=== PATIENT | female | born 2005 | race Caucasian/White ===

== ENCOUNTER 2023-10-30 22:20 | Emergency (ER) | payer MEDICAID, OTHER ==
--- NOTE | 2023-10-30 22:33 | ED Physician Documentation ---
PD HPI DYSPNEA - Stated complaint Stated Complaint: ASTHMA ATTACK - Chief complaint Chief Complaint: Resp - History obtained from History obtained from: Patient - Additional information Additional information: She has a history of asthma, PTSD and depression as well as remote fentanyl abuse. Did use some cannabis earlier this evening. On a usual day uses her rescue inhaler over only every third day or so. Does not use any maintenance medication. Started having severe shortness of breath and tachypnea over the last couple of hours. PD PAST MEDICAL HISTORY - Past Medical History Respiratory: Asthma - Allergies Allergies/Adverse Reactions: Allergies Allergy/AdvReac Type Severity Reaction Status Date / Time adhesive Allergy Unknown Verified 10/30/23 22:24 bee venom protein (honey bee) Allergy Unknown Verified 10/30/23 22:24 latex Allergy Unknown Verified 10/30/23 22:24 prednisone Allergy Unknown Verified 10/30/23 22:24 anesthesia Allergy Unknown Uncoded 10/30/23 22:24 - Social History Does the pt smoke?: No Smoking Status: Never smoker Substance Use and Type: Marijuana PD ED PE NORMAL - Vitals Vital signs reviewed: Yes - General General: Alert and oriented X 3, Other (She is severely hyperventilating and cannot talk but communicates by texting on her phone.) - Cardiac Cardiac: RRR, No murmur - Respiratory Respiratory: No respiratory distress, Other (Profoundly tachypneic but her lungs are actually very clear.) - Abdomen Abdomen: Non tender - Derm Derm: Normal color, Warm and dry - Extremities Extremities: No edema, No calf tenderness / cord - Neuro Neuro: Alert and oriented X 3 Results - Vitals Vitals: Vital Signs - 24 hr 10/30/23 10/30/23 10/30/23 22:25 22:31 22:35 Temperature 36.1 C L Heart Rate 130 H 111 H 122 H Respiratory 40 H 38 H Rate Blood Pressure 138/108 H O2 Saturation 99 100 Oxygen O2 Source Room air - Labs Labs: Laboratory Tests 10/30/23 22:48 VBG pH 7.542 H VBG pCO2 22.5 L VBG pO2 35.6 VBG HCO3 18.9 L VBG Total CO2 19.6 L VBG O2 Saturation 79.2 VBG Base Excess -1.4 PD Medical Decision Making - ED course ED course: She presents with "asthma exacerbation". That said her lungs are very clear but she is quite tachypneic anxious and has carpopedal spasms. She was administered an albuterol neb and 1 mg of Ativan, on reexamination at 11:05 PM she is still very hyperventilatory. Venous blood gas shows significant respiratory alkalosis. The blood pressure cuff causes Trousseau sign consistent with panic attack. She was administered another dose of Ativan, this time 2 mg that she is not at all sedated. Care to Dr. Burrows at 11 PM shift change pending reevaluation after that. Departure - Departure Clinical Impression: Dyspnea, Panic attack Condition: Stable Record reviewed to determine appropriate education?: Yes Instructions: ED Panic Attack Forms: PCP List
[2023-10-30] MEDS ORDERED: ALBUTEROL NEB 2.5 MG/3 ML INH ONE (22:34)
[2023-10-30] MEDS: ALBUTEROL NEB 2.5 MG/3 ML INH STA (22:35)
[2023-10-30] MEDS: LORazepam 2 MG/ML VIAL IVP STA ×2 (22:37→23:19)
[2023-10-30 22:52] LABS: VBG BASE EXCESS -1.4 mmol/L (-2 - +2); VBG HCO3 18.9 mmol/L (23-28); VBG OXYGEN SATURATION 79.2 % (60-80); VBG PCO2 22.5 mmHg (41-51); VBG PH 7.542 (7.31-7.41); VBG PO2 35.6 mmHg (25-47); VBG TOTAL CO2 19.6 mmol/L (24-29)
[2023-10-30 23:29] VITALS: BP 106/79
[2023-10-31 00:09] VITALS: O2SAT 98
--- NOTE | 2023-10-31 01:57 | ED Physician Documentation ---
ED Addendum - Addendum Addendum: 10/31/23 01:54 I received signout/turnover of care from Dr. Freire on this patient; please see his note for complete H&P. In short, patient presented with a chief complaint of shortness of breath, found to have aspects of H&P suggestive of panic attack/anxiety with hyperventilation and carpopedal spasm. She was given albuterol neb as well as 2 doses of IV lorazepam. Plan at sign-out was to reevaluate patient to see if the lorazepam was adequately controlling her symptoms. Indeed, on my evaluation of this patient, she is awake, alert, and in NAD. She reports feeling much improved, essentially says her symptoms have resolved. She says she is quite comfortable with discharge at this time. She had indicated to my colleague that she was not interested in any prescriptions that have addictive potential. I offered her a prescription for hydroxyzine, explaining that this is an anti-histamine medication and does not have physical addiction potential. I did explain that she should avoid using it regularly including using it for sleep, as it could then have a potential psychological dependence for sleep. She expresses understanding of this. I also explained that it would likely make her drowsy and thus she would need to avoid driving and any important decision making for a minimum of 6 hours after a dose (longer if she continues to feel any lingering side effects such as drowsiness). I explained this is only to be used as needed, no more than twice per day, for anxiety/panic
== END 2023-10-31 00:24 | disposition home or self-care (01) ==
LOC: ED 22:20
DX: F41.0 Panic disorder [episodic paroxysmal anxiety] (principal)
CPT/HCPCS: 36415; 82803; 94640; 96374; 96376; 99283; 99284; J2060

== ENCOUNTER 2023-10-31 23:55 | Emergency (ER) | payer MEDICAID, OTHER ==
[2023-11-01 00:57] LABS: BASOPHILS % (AUTO) 0.6 %; EOSINOPHILS # (AUTO) 0.1 10^3/uL (0.0-0.7); EOSINOPHILS % (AUTO) 1.1 %; HCT - HEMATOCRIT 41.4 % (37.0-47.0); HGB - HEMOGLOBIN 13.4 g/dL (12.0-16.0); LYMPHOCYTES # (AUTO) 2.2 10^3/uL (1.5-3.5); LYMPHOCYTES % (AUTO) 31.3 %; MEAN CORPUSCULAR HEMOGLOBIN 30.1 pg (27.0-31.0); MEAN CORPUSCULAR HGB CONC 32.4 g/dL (32.0-36.0); MEAN PLATELET VOLUME 11.7 fL (7.9-10.8); MONOCYTES # (AUTO) 0.4 10^3/uL (0.0-1.0); MONOCYTES % (AUTO) 5.5 %; NEUTROPHILS # (AUTO) 4.3 10^3/uL (1.5-6.6); NEUTROPHILS % (AUTO) 61.4 %; PLT - PLATELET COUNT 236 10^3/uL (130-450); RED BLOOD COUNT 4.45 10^6/uL (4.20-5.40); RED CELL DISTRIBUTION WIDTH 13.1 % (12.0-15.0); WHITE BLOOD COUNT 7.1 x10^3/uL (4.8-10.8)
[2023-11-01 01:13] LABS: ACETAMINOPHEN 0.1 ug/mL; ALBUMIN 4.8 g/dL (3.2-5.5); ALBUMIN/GLOBULIN RATIO 2.1 (1.0-2.2); ALKALINE PHOSPHATASE 76 IU/L (42-121); ALT ALANINE AMINOTRANSFERASE 10 IU/L (10-60); AST ASPARTATE AMINOTRANSFERASE 18 IU/L (10-42); BILIRUBIN,TOTAL 1.2 mg/dL (0.2-1.0); BUN - BLOOD UREA NITROGEN 12 mg/dL (6-20); CALCIUM 9.3 mg/dL (8.5-10.3); CARBON DIOXIDE - CO2 27 mmol/L (21-32); CHLORIDE 105 mmol/L (101-111); CREATININE 0.9 mg/dL (0.6-1.3); ETOH - ETHANOL < 10.0 mg/dL; GFR - MDRD 80 (>89); GLUCOSE 76 mg/dL (74-104); LIPASE 16 U/L (11-82); POTASSIUM 3.3 mmol/L (3.5-4.5); SODIUM 139 mmol/L (135-145); TOTAL PROTEIN 7.1 g/dL (6.4-8.9)
[2023-11-01 01:14] LABS: SALICYLATE < 1.5 mg/dL
[2023-11-01 01:31] LABS: BILIRUBIN,URINE SMALL (NEGATIVE); GLUCOSE, URINE (UA) NEGATIVE (NEGATIVE); KETONES,URINE (UA) 15 mg/dL (NEGATIVE); LEUKOCYTE ESTERASE, URINE NEGATIVE (NEGATIVE); NITRITE,URINE NEGATIVE (NEGATIVE); OCCULT BLOOD,URINE NEGATIVE (NEGATIVE); PH,URINE 5.5 PH (5.0-7.5); PROTEIN,URINE NEGATIVE (NEGATIVE); UROBILINOGEN,URINE 0.2 (NORMAL) E.U./dL (NORMAL)
[2023-11-01 01:43] LABS: THYROID STIMULATING HORMONE 0.24 uIU/mL (0.34-5.60)
[2023-11-01 01:46] LABS: CLARITY,URINE CLEAR (CLEAR); HCG UR QUAL NEGATIVE
[2023-11-01 01:47] LABS: AMPHETAMINE SCREEN,URINE NEGATIVE (NEGATIVE); BARBITURATE SCREEN,UR NEGATIVE (NEGATIVE); BENZODIAZEPINES SCREEN, URINE POSITIVE (NEGATIVE); BUPRENORPHINE SCREEN, URINE NEGATIVE (NEGATIVE); COCAINE SCREEN URINE NEGATIVE (NEGATIVE); METHADONE SCREEN, URINE NEGATIVE (NEGATIVE); METHAMPHETAMINES SCREEN, URINE NEGATIVE (NEGATIVE); OPIATE SCREEN, URINE NEGATIVE (NEGATIVE); OXYCODONE SCREEN, URINE NEGATIVE (NEGATIVE); THC CANNABINOID SCREEN, URINE POSITIVE (NEGATIVE); TRICYCLIC ANTIDEPRESSANT,URINE NEGATIVE (NEGATIVE)
--- NOTE | 2023-11-01 03:37 | ED Physician Documentation ---
History of Present Illness - Stated complaint Stated Complaint: MHE - Chief complaint Chief Complaint: MHE - Additonal information Additional information: 18-year-old female presents to the emergency department requesting evaluation for mental health. Reports history anxiety, depression, previous suicide attempt. States had a panic attack yesterday for which she was seen at this facility. Was treated with lorazepam. Reports that this is caused her to have increased anxiety as well as concern that she may relapse on fentanyl drugs she has used in the past. Reports depressed mood as well as thoughts of self-harm, states "I have thought about cutting my wrists". 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 Denies auditory or visual hallucinations. Denies homicidal ideation. States "I am from [place] and I think I need to be hospitalized". Review of Systems Constitutional: denies: Fever Eyes: denies: Loss of vision Ears: denies: Loss of hearing Nose: denies: Rhinorrhea / runny nose Throat: denies: Dental pain / toothache Cardiac: denies: Chest pain / pressure Respiratory: denies: Dyspnea GI: denies: Abdominal Pain : denies: Dysuria Skin: denies: Rash Musculoskeletal: denies: Neck pain Neurologic: denies: Generalized weakness Psychiatric: reports: Depressed, Suicidal, Anxiety, Insomnia. denies: Homicidal, Hallucinations, Delusions PD PAST MEDICAL HISTORY - Past Medical History Past Medical History: Yes Respiratory: Asthma Psych: Depression, Anxiety - Past Surgical History Past Surgical History: No - Present Medications Home Medications: Ambulatory Orders Medication Instructions Recorded Confirmed hydrOXYzine HCL [Hydroxyzine HCl] 25 mg PO BID PRN #14 tablet 10/31/23 - Allergies Allergies/Adverse Reactions: Allergies Allergy/AdvReac Type Severity Reaction Status Date / Time adhesive Allergy Unknown Verified 11/01/23 00:00 bee venom protein (honey bee) Allergy Unknown Verified 11/01/23 00:00 latex Allergy Unknown Verified 11/01/23 00:00 prednisone Allergy Unknown Verified 11/01/23 00:00 anesthesia Allergy Unknown Uncoded 11/01/23 00:00 - Social History Does the pt smoke?: Yes Smoking Status: Current every day smoker Does the pt drink ETOH?: Yes Does the pt have substance abuse?: No Substance Use and Type: Marijuana - Immunizations Immunizations are current?: No - POLST Patient has POLST: No PD ED PE NORMAL - Vitals Vital signs reviewed: Yes - General General: Alert and oriented X 3 - HEENT HEENT: Atraumatic, PERRL, EOMI, Ears normal, Moist mucous membranes, Pharynx benign - Neck Neck: Supple, no meningeal sign, No bony TTP, No adenopathy, Thyroid normal, No JVD, No bruit, C-Spine cleared by NEXUS criteria - Cardiac Cardiac: RRR - Respiratory Respiratory: No respiratory distress - Abdomen Abdomen: Normal bowel sounds - Female Female : Deferred, Pt declined, Financial Reporting Specialist present - Extremities Extremities: No deformity PD ED PE EXPANDED - Psych Psych: Depressed, Suicidal, Anxious. No: Homicidal, Tearful, Withdrawn, Poor eye contact, Non verbal, Agitated, Combative, Manic, Pressured speech, Flight of ideas, Auditory hallucinations, Visual hallucinations, Tactile hallucinations, Delusions Results - Vitals Vitals: Vital Signs - 24 hr 11/01/23 00:00 Temperature 36.5 C Heart Rate 110 H Respiratory 18 Rate Blood Pressure 150/97 H O2 Saturation 100 Oxygen O2 Source Room air - Labs Labs: Laboratory Tests 11/01/23 11/01/23 11/01/23 00:42 00:42 01:00 WBC 7.1 RBC 4.45 Hgb 13.4 Hct 41.4 MCV 93.0 MCH 30.1 MCHC 32.4 RDW 13.1 Plt Count 236 MPV 11.7 H Neut # (Auto) 4.3 Lymph # (Auto) 2.2 Green # (Auto) 0.4 Eos # (Auto) 0.1 Baso # (Auto) 0.0 Absolute Nucleated RBC 0.00 Nucleated RBC % 0.0 Sodium 139 Potassium 3.3 L Chloride 105 Carbon Dioxide 27 Anion Gap 7.0 BUN 12 Creatinine 0.9 Estimated GFR (MDRD) 80 L Glucose 76 Calcium 9.3 Total Bilirubin 1.2 H AST 18 ALT 10 Alkaline Phosphatase 76 Total Protein 7.1 Albumin 4.8 Globulin 2.3 Albumin/Globulin Ratio 2.1 Lipase 16 TSH 0.24 L Urine Color YELLOW Urine Clarity CLEAR Urine pH 5.5 Ur Specific [place] >=1.030 H Urine Protein NEGATIVE Urine Glucose (UA) NEGATIVE Urine Ketones 15 H Urine Occult Blood NEGATIVE Urine Nitrite NEGATIVE Urine Bilirubin SMALL H Urine Urobilinogen 0.2 (NORMAL) Ur Leukocyte Esterase NEGATIVE Ur Microscopic Review NOT INDICATED Urine Culture Comments NOT INDICATED Urine HCG, Qual NEGATIVE Salicylates < 1.5 Urine Opiates Screen NEGATIVE Ur Buprenorphine Scrn NEGATIVE Ur Oxycodone Screen NEGATIVE Urine Methadone Screen NEGATIVE Acetaminophen 0.1 Ur Barbiturates Screen NEGATIVE Ur Tricyclics Screen NEGATIVE Ur Phencyclidine Scrn NEGATIVE Ur Amphetamine Screen NEGATIVE U Methamphetamines Scrn NEGATIVE U Benzodiazepines Scrn POSITIVE H Urine Cocaine Screen NEGATIVE U Cannabinoids Screen POSITIVE H Ur Drug Screen Comment CUTOFF CONC BELOW: Ethyl Alcohol < 10.0 SARS-CoV-2 (PCR) 11/01/23 01:15 WBC RBC Hgb Hct MCV MCH MCHC RDW Plt Count MPV Neut # (Auto) Lymph # (Auto) Green # (Auto) Eos # (Auto) Baso # (Auto) Absolute Nucleated RBC Nucleated RBC % Sodium Potassium Chloride Carbon Dioxide Anion Gap BUN Creatinine Estimated GFR (MDRD) Glucose Calcium Total Bilirubin AST ALT Alkaline Phosphatase Total Protein Albumin Globulin Albumin/Globulin Ratio Lipase TSH Urine Color Urine Clarity Urine pH Ur Specific [place] Urine Protein Urine Glucose (UA) Urine Ketones Urine Occult Blood Urine Nitrite Urine Bilirubin Urine Urobilinogen Ur Leukocyte Esterase Ur Microscopic Review Urine Culture Comments Urine HCG, Qual Salicylates Urine Opiates Screen Ur Buprenorphine Scrn Ur Oxycodone Screen Urine Methadone Screen Acetaminophen Ur Barbiturates Screen Ur Tricyclics Screen Ur Phencyclidine Scrn Ur Amphetamine Screen U Methamphetamines Scrn U Benzodiazepines Scrn Urine Cocaine Screen U Cannabinoids Screen Ur Drug Screen Comment Ethyl Alcohol SARS-CoV-2 (PCR) NOT DETECTED PD Medical Decision Making - ED course Complexity details: d/w patient ED course: 18-year-old female presents to the emergency department requesting evaluation f or anxiety, depression, suicidality. Endorsed for thoughts of wanting to kill herself, specifically planning on cutting her wrists. Endorsed for use cannabinoids as well as recent evaluation in the emergency department for panic attack during which time she received Ativan. Labs all generally within normal limits or nonactionable. Mildly hypokalemic but patient tolerating p.o. in the emergency department. Medically cleared for evaluation by telemetry behavioral health. Departure - Departure
--- NOTE | 2023-11-01 04:01 | TELEPSYCH PHYS NOTE ---
[facility] Telepsych Consult Consult Date: 11/01/23 Name of Referring Provider:: ED Provider Reason for Consult: Suicidal ideation with plan to cut wrists - Suicide Risk Sreening (ASQ Tool) In the past few weeks, have you wished you were ?: Yes In the past few weeks, have you felt that you or your family would be better off if you were ?: Yes In the past week, have you been having thoughts about killing yourself?: Yes Have you ever tried to kill yourself?: Yes - Assessment Language: Spanish Stores Naval Required: No Cultural, Anabaptism or Spiritual Preferences: Denies. Chief Complaint: Sucidal Ideation with plan to cut wrists History of Present Illness: Patient is a 18 year old female that presents to the ED for suicidal ideation with plan to cut wrists. Patient has a past history of depression, anxiety, and substance abuse. Patient was seen yesterday for panic attack at [facility] and was prescribed Ativan. Per patient, "It wasn't just this one thing that happened. It's a lot of different things. Last night I was at my boyfriends last show for his band. I had a panic attack. They gave me Ativan and I didn't expect love the Ativan. I loved it too much and I don't want to relapse again. I can't remember going home, getting out of the car, I loved that feeling. I'm also having a chance to process things and it hurts. Suicide Ideation - Homicide Ideation - Self Harm: Denies SI at present but did have SI with plan earlier. Denies HI. Self Harm: "I cut and my burn myself. Usually my wrists for cutting and for burning anywhere and everywhere. I use anything that works to cut." Psychiatric History - Treatment History: "Inpatient for mental health two times. Most recent November 30, 2022 in [place], [place]. For Suicidal Ideation. I was in rehab at the time and I was taken to rehab to the psych taylor. Been in rehab two times as well around the same time period. Fentanyl." Community Resources Accessed: N/A Family Psych History/ History of suicide: "My sister has depression and anxiety. My dad has depression and anxiety. I don't know about my mom." Denies family history of suicide." Nutritional Status: Eating habits/behaviors that may be indicators of an eating disorder - Medication & Allergies Home Medications: Ambulatory Orders Medication Instructions Recorded Confirmed hydrOXYzine HCL [Hydroxyzine HCl] 25 mg PO BID PRN #14 tablet 10/31/23 Allergies/Adverse Reactions: Allergies Allergy/AdvReac Type Severity Reaction Status Date / Time adhesive Allergy Unknown Verified 11/01/23 00:00 bee venom protein (honey bee) Allergy Unknown Verified 11/01/23 00:00 latex Allergy Unknown Verified 11/01/23 00:00 prednisone Allergy Unknown Verified 11/01/23 00:00 anesthesia Allergy Unknown Uncoded 11/01/23 00:00 - Drug & Alcohol History Does patient have Drug/ETOH history or addictive behavior?: Yes Use: Uses substance without health or social issues: Opioid Use Issues: Intoxication Abuse: Recurrent use of substance despite neg consequences: Opioid Abuse Issues: Intoxication Dependence: Experiences withdrawal or developed tolerances: Opioid Dependence Issues: Intoxication - Trauma Does the patient have a history of trauma, abuse, neglect or explotation?: Yes History of trauma, abuse, neglect, or exploitation (Notes): "All the above... abuse, neglect, and trauma." - Personal Information Does the patient have a history or present tendencies for violence?: None Services History: No Does patient have any Legal Charges or Investigations?: No Environment & Living Situation - Social, Peer-Group (Note): At home Environment & Living Situation - Social, Peer-Group (Notes): "My bpyfriend." Marital Status - Family Circumstances: "been with boyfriend for 2 months." Education: "I graduated." Occupation: "I don't think so. I was. Haven't been on the schedule for multiple weeks. Collateral - Interdisciplinary Input: N/A - Medical History Psychiatric: reports: Depression, Anxiety, Panic attacks, Post traumatic stress disorder, Eating disorder Neurological: reports: None, Other Respiratory: reports: Asthma Childhood History: "I have one sibling. My older sister, same parents. My parents gave me up to my dads mom when I was 1. My grandma said OK. My dad disappeared for 5 years without my mom. Dad came back and I was switching from homes. I left home when I was 14. Custody coyne didn't end upon I was 16." - Mental Status Exam Appearance and Attire: Groomed. Hospital Scrubs." Attitude and Behavior: Calm and Cooperative. Speech: Coherent. Normal rate and normal tone. Affect and Mood: Appropriate to situation. Sad. Association and Thought Process: Intact association. Organized and Linear thought process. Thought Content: Denies SI. Did have SI with plan to cut wrists. Denies HI. Sensorium, memory and orientation: Alert and Oriented x 4 Intellectual - Cognitive functioning: Average Insight and Judgement: Fair and Fair Emotional and Behavioral Functioning: Poor. Ability to Self-Care: Independent. - Personal Goals Short-term Goals: "I use to have alot. Then I got into Fentanyl. It took away me. I want to find myself again." Long-term Goals: "I want to find myself again." - Risk/Protective Factors Risk Factors: Sexual or physical abuse, Inadequate social supports, Social Isolation, Perceived burden on other Protective Factors / Internal: Identifies reasons for living Protective Factors / External: Supportive social network of family or friends - Plan Impression/Risk Assessment: Patient is a 18 year old female that presents to the ED for suicidal ideation with plan to cut wrists. Patient has a history of depression, anxiety, PTSD, and substance abuse. Patient has been clean from Fentanyl for 11 months and was given Ativan in ED last night for panic attack. She states she loved the feeling so much she is afraid she will relapse and that is causing her to have thoughts of suicidal ideation with plan to cut her wrists. Patient at this time is new to area from [facility] and is lacking good support systems besides that of her live in boyfriend of two months. Patient also has renita suicide attempt and is not future oriented. She does want to get better but is struggling with plans for the future. At this time, due to aforementioned risk factors, patient is of moderate to high risk of danger to self. Treatment - Therapy Recommendations: -Continue Suicide Precautions. -Inpatient Mental Health for safety and Stablization. -Supportive Therapy to include CBT and Mindfulness. Pharmacological Recommendations: Continue Vistaril 25 mg to 50 mg PO TID PRN for anxiety. Please do not give patient any benzos or stimulants due to addictive behavior. Patient states she has been on numerous mental health medications before but cannot remember the names or what worked or didn't work for her. Inpatient mental health treatment team will manage mental health medications. - Problem List (2) Major depression Qualifiers: Major depression recurrence: recurrent Active/Remission status: currently active Major depression episode severity: severe Psychotic features: without psychotic features Qualified Code(s): F33.2 - Major depressive disorder, recurrent severe without psychotic features - Time Spent & Provider Location Telepsych consultation conducted via videoconferencing: Yes List names and roles of persons who participated in consult: Patient Andree Rodgers and PMHNP-BC Beulah Patel Telepsych Provider Location: Remote Time Spent (Minutes): 45
--- NOTE | 2023-11-01 07:47 | ED Physician Documentation ---
ED Addendum - Addendum Addendum: 11/01/23 07:46 The patient was signed out to me at change of shift, pending final disposition after presenting to the emergency department with suicidal ideation. The patient was stable throughout her stay in the emergency department and was ultimately accepted by Dr. Brett Dickerson at [facility]. The patient was agreeable to transfer, and went voluntarily. Final impression: 1. Depression with suicidal ideation Disposition: Transfer to [facility] in stable condition.
[2023-11-01 10:08] VITALS: BP 112/61; O2SAT 98
== END 2023-11-01 12:45 ==
LOC: ED 23:55
DX: F32.A Depression, unspecified (principal); R45.851 Suicidal ideations; E87.6 Hypokalemia; F17.200 Nicotine dependence, unspecified, uncomplicated
CPT/HCPCS: 36415; 80053; 80143; 80179; 80306; 81003; 81025; 82077; 83690; 84443; 85025; 87635; 99285; G0425; Q3014; 81001; 87086